=== PATIENT | male | born 1990 | race Two or more races ===

== ENCOUNTER 2024-05-27 02:29 | Emergency (ER) | payer MEDICAID, OTHER ==
[~2024-05-27] VITALS: Ht 167.6 cm; Wt 77.7 kg
[2024-05-27 02:56] VITALS: BP 95/57; PULSE 89; RESP 16; TEMP 98.4; O2SAT 100
--- NOTE | 2024-05-27 03:32 | ED.PDOC ---
Musculoskeletal HPI Comments 33-year-old male who came to ER for right hip pain. Patient has history of right hip fracture/right femoral neck fracture. Patient coming in for pain medications. Patient is homeless and is a very poor informant. Chief Complaint: Lower Extremity Time Seen by MD: 03:32 Reviewed Notes: Nurses Notes Allergies: Coded Allergies: NO KNOWN ALLERGIES (Unverified , 05/27/24) Information Source: Patient Mode of Arrival: Ambulatory Location: Right Extremity Location: Hip Timing: Days Prehospital treatment: None Severity: Moderate Able to Move Extremity: Yes Bear Weight: Limited Pain: Moderate Hand Dominance: Right Mechanism: Spontaneous Circumstances: Spontaneous Onset of Symptoms: Spontaneous Symptoms: Pain Associated signs and symptoms: Hip pain Past Medical History PAST MEDICAL HISTORY: HTN, Liver Past Medical History (Other): Abdominal paracentesis, liver cirrhosis, bowel obstruction Surgical History (Other): Right femoral fracture, exploratory laparotomy Family History Family History: Reviewed,noncontributory to illness Social History Smoker: Cigarettes Alcohol: Occasionally Drugs: Marijuana Lives In: Homeless Constitutional: denies: chills, diaphoresis, fatigue, fever, malaise, sweats, weakness, others EENTM: denies: blurred vision, double vision, ear bleeding, ear discharge, ear drainage, ear pain, ear ringing, eye pain, eye redness, hearing loss, mouth pain, mouth swelling, nasal discharge, nose bleeding, nose congestion, nose pain, photophobia, tearing, throat pain, throat swelling, voice changes, others Respiratory: denies: cough, hemoptysis, orthopnea, SOB at rest, shortness of breath, SOB with excertion, stridor, wheezing, others Cardiovascular: denies: chest pain, dizzy spells, diaphoresis, Dyspnea on exertion, edema, irregular heart beat, left arm pain, lightheadedness, palpitations, PND, syncope, others Gastrointestinal: denies: abdomen distended, abdominal pain, blood streaked bowels, constipated, diarrhea, dysphagia, difficulty swallowing, hematemesis, melena, nausea, poor appetite, poor fluid intake, rectal bleeding, rectal pain, vomiting, others Genitourinary: denies: burning, dysuria, flank pain, frequency, hematuria, incontinence, penile discharge, penile sore, pain, testicle pain, testicle swelling, urgency, others Neurological: denies: dizziness, fainting, headache, left sided numbness, left sided weakness, numbness, paresthesia, pre-existing deficit, right sided numbness, right sided weakness, seizure, speech problems, tingling, tremors, weakness, others Musculoskeletal: reports: joint pain (Right hip pain); denies: back pain, gout, joint swelling, muscle pain, muscle stiffness, neck pain, others Integumetry: denies: bruises, change in color, change in hair/nails, dryness, laceration, lesions, lumps, rash, wounds, others Allergic/Immunocompromised: denies: Difficulty Healing, Frequent Infections, Hives, Itching, others Hematologic/Lymphatic: denies: anemia, blood clots, easy bleeding, easy bruising, swollen glands, others Endocrine: denies: excessive hunger, excessive sweating, excessive thirst, excessive urination, flushing, intolerance to cold, intolerance to heat, unexplained weight gain, unexplained weight loss, others Psychiatric: denies: anxiety, bipolar disorder, depression, hopeless, panic disorder, schizophrenia, sleepless, suicidal, others Physical Exam General Appearance: No Apparent Distress, Normal HEENT: Normal ENT Inspection, Pharynx Normal, TMs Normal Neck: Full Range of Motion, Non-Tender, Normal, Normal Inspection Respiratory: Chest Non-Tender, Lungs Clear, No Accessory Muscle Use, No Respiratory Distress, Normal Breath Sounds Cardiovascular: No Edema, No JVD, No Murmur, No Gallop, Normal Peripheral Pulses, Regular Rate/Rhythm Breast Exam: Deferred Gastrointestinal: No Organomegaly, Non Tender, No Pulsatile Mass, Normal Bowel Sounds, Soft Genitalia: Deferred Pelvic: Deferred Rectal: Deferred Extremities: No calf tenderness, Normal capillary refill, Normal inspection, Normal range of motion, Non-tender, No pedal edema Musculoskeletal : Apperance: Normal Neurologic: Alert, dental practitioner II-XII nml as Tested, No Motor Deficits, Normal Affect, Normal Mood, No Sensory Deficits Cerebellar Function: Normal Reflexes: Normal Skin: Dry, Normal Color, Warm Lymphatic: No Adenopathy Was a procedure done? Was a procedure done?: No Differential Diagnosis EXT Differential Diagnosis: Cellulitis, Fracture, Sprain, Dislocation, Strain, Septic, Hernia, Arthritis X-Ray, Labs, Meds, VS Vital Signs Date Time Temp Pulse Resp B/P (MAP) Pulse Ox O2 Delivery O2 Flow Rate FiO2 05/27/24 02:56 98.4 89 16 95/57 (70) 100 98.4 XY R HIP COMPLETE XRAY INDICATION: right hip pain Technique: 3 views of the right hip were obtained COMPARISON: None IMPRESSION: There is a nondisplaced incomplete fracture through a 6.7 cm lucent lesion in the medial aspect of the right femoral neck and meta diaphysis. 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 Cross-sectional imaging is recommended. CHEST RADIOGRAPH Indication: weakness, right hip pain Technique: Single frontal view of the chest was obtained Comparison: None IMPRESSION: Cardiomediastinal silhouette is markedly enlarged which may be on the basis of cardiomegaly or pericardial effusion. The lungs appear clear without focal airspace opacity, effusion, or pneumothorax Time of 1ST Reevaluation: 03:26 Reevaluation 1ST: Unchanged Patient Education/Counseling: Diagnosis, Treatment Family Education/Counseling: No Family Present Critical Care Note Critical Care Time?: No Stability Stability form required: No Heart Score Heart Score: Heart Score Response (Comments) Value History N/A 0 EKG N/A 0 Age N/A 0 Risk Factors N/A 0 Troponin N/A 0 Total 0 I personally scribed for ZECHARIAH VASQUES MD ([email or web address]) on 05/27/24 at 03:32. Electronically submitted by Billy Perkins ([email or web address]). I personally scribed for ZEHCARIAH VASQUES MD ([email or web address]) on 05/27/24 at 04:17. Electronically submitted by Billy Perkins ([email or web address]). ZECHARIAH VASQUES MD May 27, 2024 03:32
--- NOTE | 2024-05-27 03:48 | DVH ---
CHEST RADIOGRAPH Indication: weakness, right hip pain Technique: Single frontal view of the chest was obtained Comparison: None IMPRESSION: Cardiomediastinal silhouette is markedly enlarged which may be on the basis of cardiomegaly or perica rdial effusion. The lungs appear clear without focal airspace opacity, effusion, or pneumothorax
--- NOTE | 2024-05-27 03:52 | DVH ---
XY R HIP COMPLETE XRAY INDICATION: right hip pain Technique: 3 views of the right hip were obtained COMPARISON: None IMPRESSION: There is a nondisplaced incomplete fracture through a 6.7 cm lucent lesion in the medial aspect of th e right femoral neck and meta diaphysis. 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 Cross-sectional imaging is recommended.
== END 2024-05-27 05:15 | disposition home or self-care (01) ==
LOC: ER 02:29 → EDSEX 02:29 → ER 05:15
DX: M25.551 Pain in right hip (principal); I10 Essential (primary) hypertension; F17.210 Nicotine dependence, cigarettes, uncomplicated; F12.90 Cannabis use, unspecified, uncomplicated; Z98.890 Other specified postprocedural states; Z59.00 Homelessness unspecified
CPT/HCPCS: 71045; 73502